=== PATIENT | female | born 1950 | race Caucasian/White ===

== ENCOUNTER 2023-04-04 12:30 | Inpatient (IN) | payer MEDICARE, BC ==
[~2023-04-04] VITALS: Ht 162.6 cm; Wt 59.9 kg
[2023-04-04] MEDS ORDERED: MAG HYDROX/AL HYDROX/SIMETH 30 ML UDC PO PRN (19:00)
[2023-04-04] MEDS ORDERED: BLOOD SUGAR DIAGNOSTIC 1 EACH STRIP IN ONE (19:00)
[2023-04-04] MEDS ORDERED: ACETAMINOPHEN 325 MG TABLET PO PRN (19:00)
[2023-04-04] MEDS ORDERED: MAGNESIUM HYDROXIDE 30 ML UDC PO PRN (19:00)
[2023-04-04] MEDS ORDERED: OLAN5TAB3 PO (19:16)
[2023-04-04] MEDS: clonazePAM 0.5 MG TABLET PO SCH (20:27)
[2023-04-04 20:31] VITALS: BP 153/71; TEMP 98; O2SAT 99
[2023-04-04] MEDS: TEMAZEPAM 7.5 MG CAPSULE PO PRN (22:00)
[2023-04-05 04:17] LABS: APPEARANCE,URINE CLEAR (CLEAR); BILIRUBIN,URINE NEGATIVE (NEGATIVE); BLOOD, URINE 2+ Ery/uL (NEGATIVE); COLOR,URINE DARK YELLOW (YELLOW); KETONES,URINE NEGATIVE (NEGATIVE); LEUKOCYTE ESTERASE ,URINE NEGATIVE (NEGATIVE); NITRITE, URINE NEGATIVE (NEGATIVE); PROTEIN,URINE NEGATIVE (NEGATIVE); UGLUCOSE NEGATIVE (NEGATIVE)
[2023-04-05 04:32] LABS: ADD URINE CULTURE NO; BACTERIA,URINE Rare /HPF (None Seen); SQUAMOUS EPITHELIAL CELL,UR Few /HPF (None Seen); WBC,URINE 0-2 /HPF (0-3)
[2023-04-05 07:46] LABS: CHOLESTEROL 151 mg/dL (<200); HDL CHOLESTEROL 56 mg/dL (40-60); LDL 76 mg/dL (0-99); TRIGLYCERIDES 54 mg/dL (30-150)
[2023-04-05 07:47] LABS: ALANINE AMINOTRANSFERASE 22 U/L (12-78); ALBUMIN 2.6 g/dL (3.4-5.0); ALKALINE PHOSPHATASE 72 U/L (46-116); ASPARTATE AMINOTRANSFERASE 18 U/L (15-37); CALCIUM, SERUM 9.4 mg/dL (8.5-10.1); CARBON DIOXIDE 26 mmol/L (21-32); CHLORIDE 105 mmol/L (98-107); CREATININE 0.9 mg/dL (0.6-1.3); GLUCOSE 104 mg/dL (74-106); POTASSIUM 3.8 mmol/L (3.5-5.1); SODIUM SERUM 140 mmol/L (136-145); TOTAL PROTEIN, SERUM 6.8 g/dL (6.4-8.2); UREA NITROGEN, BLOOD 16 mg/dL (7-18)
[2023-04-05 08:00] VITALS: BP 103/58; TEMP 98.1; O2SAT 98
[2023-04-05] MEDS: OLANZAPINE 2.5 MG TABLET PO SCH ×2 (10:52→16:39)
[2023-04-05] MEDS: DIVALPROEX SODIUM 125 MG TABLET.DR PO SCH ×2 (10:53→21:53)
[2023-04-05 16:00] VITALS: BP 127/81; TEMP 98; O2SAT 100
[2023-04-05] MEDS: clonazePAM 0.5 MG TABLET PO SCH (17:04)
[2023-04-05 21:05] VITALS: BP 110/69; TEMP 97.8; O2SAT 98
[2023-04-05] MEDS: TEMAZEPAM 7.5 MG CAPSULE PO PRN (22:06)
[2023-04-06 08:00] VITALS: BP 114/59; TEMP 97.8; O2SAT 100
[2023-04-06] MEDS: OLANZAPINE 2.5 MG TABLET PO SCH ×2 (09:50→16:12)
[2023-04-06] MEDS: DIVALPROEX SODIUM 125 MG TABLET.DR PO SCH ×2 (09:50→21:16)
[2023-04-06 16:00] VITALS: BP 110/71; TEMP 97.8; O2SAT 98
[2023-04-06 20:00] VITALS: BP 122/65; TEMP 97.8; O2SAT 99
[2023-04-06] MEDS: TEMAZEPAM 7.5 MG CAPSULE PO PRN (21:17)
[2023-04-06] MEDS: MUPIROCIN OINT 2% 22 GM TUBE NS SCH (21:18)
[2023-04-07 08:00] VITALS: BP 109/63; TEMP 98.6; O2SAT 100
[2023-04-07] MEDS: DIVALPROEX SODIUM 125 MG TABLET.DR PO SCH ×2 (08:12→21:00)
[2023-04-07] MEDS: OLANZAPINE 2.5 MG TABLET PO SCH ×2 (08:12→16:52)
[2023-04-07] MEDS: MUPIROCIN OINT 2% 22 GM TUBE NS SCH ×2 (08:14→21:00)
[2023-04-07 16:00] VITALS: BP 103/63; TEMP 97.4; O2SAT 100
[2023-04-07 21:29] VITALS: BP 104/63; TEMP 97.6; O2SAT 100
[2023-04-08 08:00] VITALS: BP 128/72; TEMP 98; O2SAT 95
[2023-04-08] MEDS: DIVALPROEX SODIUM 125 MG TABLET.DR PO SCH ×2 (08:22→21:11)
[2023-04-08] MEDS: MUPIROCIN OINT 2% 22 GM TUBE NS SCH ×2 (08:22→21:00)
[2023-04-08] MEDS: OLANZAPINE 2.5 MG TABLET PO SCH ×2 (08:22→16:20)
[2023-04-08 16:00] VITALS: BP 123/62; TEMP 98.6; O2SAT 98
[2023-04-08 20:00] VITALS: BP 135/74; TEMP 97.6
[2023-04-08] MEDS: clonazePAM 0.5 MG TABLET PO SCH (23:12)
[2023-04-09] MEDS: MUPIROCIN OINT 2% 22 GM TUBE NS SCH ×2 (09:10→21:10)
[2023-04-09] MEDS: DIVALPROEX SODIUM 125 MG TABLET.DR PO SCH ×2 (09:16→21:09)
[2023-04-09] MEDS: OLANZAPINE 2.5 MG TABLET PO SCH ×2 (09:16→17:19)
[2023-04-09 16:00] VITALS: BP 116/59; TEMP 97.9; O2SAT 100
[2023-04-10] MEDS: TEMAZEPAM 7.5 MG CAPSULE PO PRN (00:15)
[2023-04-10 08:00] VITALS: BP 113/70; TEMP 97.8; O2SAT 98
[2023-04-10] MEDS: MUPIROCIN OINT 2% 22 GM TUBE NS SCH ×2 (09:00→21:21)
[2023-04-10] MEDS: OLANZAPINE 2.5 MG TABLET PO SCH ×2 (10:06→17:11)
[2023-04-10] MEDS: DIVALPROEX SODIUM 125 MG TABLET.DR PO SCH ×3 (10:07→21:22)
[2023-04-10] MEDS: clonazePAM 0.5 MG TABLET PO SCH (13:50)
[2023-04-10 16:00] VITALS: BP 120/54; TEMP 97.9; O2SAT 100
[2023-04-10 20:24] VITALS: BP 125/79; TEMP 98.8; O2SAT 100
[2023-04-11 08:00] VITALS: BP 102/61; TEMP 97.8; O2SAT 98
[2023-04-11] MEDS: MUPIROCIN OINT 2% 22 GM TUBE NS SCH ×4 (09:00→21:07)
[2023-04-11] MEDS: ENSURE ENLIVE 237 ML LIQUID (VANILLA) PO SCH (09:00)
[2023-04-11] MEDS: DIVALPROEX SODIUM 125 MG TABLET.DR PO SCH ×2 (10:26→21:08)
[2023-04-11] MEDS: OLANZAPINE 2.5 MG TABLET PO SCH ×2 (10:27→17:37)
[2023-04-11 16:00] VITALS: BP 133/79; TEMP 97.6; O2SAT 98
[2023-04-11 20:18] VITALS: BP 119/66; TEMP 97.8; O2SAT 97
[2023-04-11] MEDS: TEMAZEPAM 7.5 MG CAPSULE PO PRN (21:10)
[2023-04-11] MEDS: clonazePAM 0.5 MG TABLET PO SCH (23:53)
[2023-04-12 08:00] VITALS: BP 117/56; TEMP 98.7; O2SAT 96
[2023-04-12] MEDS: OLANZAPINE 2.5 MG TABLET PO SCH ×2 (09:34→17:10)
[2023-04-12] MEDS: DIVALPROEX SODIUM 125 MG TABLET.DR PO SCH ×2 (09:35→21:29)
[2023-04-12] MEDS: clonazePAM 0.5 MG TABLET PO SCH ×2 (09:35→17:10)
[2023-04-12] MEDS: ENSURE ENLIVE 237 ML LIQUID (VANILLA) PO SCH (09:36)
[2023-04-12] MEDS: MUPIROCIN OINT 2% 22 GM TUBE NS SCH ×2 (09:37→21:25)
[2023-04-12 16:00] VITALS: BP 123/63; TEMP 98.1; O2SAT 98
[2023-04-12 20:22] VITALS: BP 117/79; TEMP 97.8; O2SAT 98
[2023-04-12] MEDS: TEMAZEPAM 7.5 MG CAPSULE PO PRN (21:37)
[2023-04-13 08:00] VITALS: BP 100/73; TEMP 97.9; O2SAT 97
[2023-04-13] MEDS: ENSURE ENLIVE 237 ML LIQUID (VANILLA) PO SCH (09:32)
[2023-04-13] MEDS: OLANZAPINE 2.5 MG TABLET PO SCH ×2 (09:32→16:24)
[2023-04-13] MEDS: MUPIROCIN OINT 2% 22 GM TUBE NS SCH (09:33)
[2023-04-13] MEDS: DIVALPROEX SODIUM 125 MG TABLET.DR PO SCH ×2 (09:33→21:09)
[2023-04-13 16:00] VITALS: BP 104/72; TEMP 97.5; O2SAT 99
[2023-04-13 21:06] VITALS: BP 130/70; TEMP 98.3; O2SAT 100
[2023-04-13] MEDS ORDERED: clonazePAM 0.5 MG TABLET PO PRN (23:08)
[2023-04-14 08:00] VITALS: BP 131/69; TEMP 98.1; O2SAT 95
[2023-04-14] MEDS: ENSURE ENLIVE 237 ML LIQUID (VANILLA) PO SCH (08:36)
[2023-04-14] MEDS: DIVALPROEX SODIUM 125 MG TABLET.DR PO SCH (08:37)
[2023-04-14] MEDS: OLANZAPINE 2.5 MG TABLET PO SCH (08:38)
== END 2023-04-14 13:30 | DRG 885 ==
LOC: GPS 18:22
PROVIDERS: ADMIT Nurse Practitioner Psychiatric/Mental Health
DX: F29 Unspecified psychosis not due to a substance or known physiological condition (principal); F03.93 Unspecified dementia, unspecified severity, with mood disturbance; F03.94 Unspecified dementia, unspecified severity, with anxiety; E44.0 Moderate protein-calorie malnutrition; F41.9 Anxiety disorder, unspecified; Z73.6 Limitation of activities due to disability; R53.1 Weakness; R27.8 Other lack of coordination; Z91.81 History of falling; Z78.9 Other specified health status; E88.09 Other disorders of plasma-protein metabolism, not elsewhere classified
CPT/HCPCS: 36415; 80053-TC; 80061-TC; 80164-TC; 81001; 82962-TC; 87081-TC; 97116-TC

== ENCOUNTER 2023-11-14 18:30 | Inpatient (IN) | payer MEDICARE, BC ==
[~2023-11-14] VITALS: Ht 165.1 cm; Wt 70.3 kg
[~2023-11-14 18:30] MED LIST: OLAN5TAB3 PO
[2023-11-14] MEDS: VANCOMYCIN 1 GM in IV D5W 250 ML IV ONE (19:00)
[2023-11-14 19:24] LABS: BASOPHILS % (AUTO) 0.4 % (0.0-2.0); EOSINOPHILS % (AUTO) 0.5 % (0.0-6.0); HEMATOCRIT 41 % (33-45); HEMOGLOBIN 13.5 g/dL (11.5-14.8); LYMPHOCYTES # (AUTO) 1.7 K/uL (0.8-4.8); LYMPHOCYTES % (AUTO) 33.1 % (20.0-44.0); MEAN CORPUSCULAR HEMOGLOBIN 32 PG (26.0-33.0); MEAN CORPUSCULAR HGB CONC 33 g/dl (31.0-36.0); MEAN CORPUSCULAR VOLUME 97 fL (82-100); MONOCYTES # (AUTO) 0.5 K/uL (0.1-1.30); MONOCYTES % (AUTO) 10.2 % (2.0-12.0); NEUTROPHILS # (AUTO) 2.9 K/uL (1.8-8.9); NEUTROPHILS % (AUTO) 55.8 % (43.0-81.0); PLATELET COUNT (AUTO) 181 K/uL (150-450); RED BLOOD CELL COUNT(AUTO) 4.22 MIL/uL (4.0-5.2); RED CELL DISTRIBUTION WIDTH 14.5 % (11.5-15.0); WHITE BLOOD COUNT (AUTO) 5.2 K/uL (4.3-11.0)
[2023-11-14] MEDS: PIPERACILLIN /TAZOBACTAM 3.375 G in IV D5W 50 ML IV ONE (19:24)
[2023-11-14] MEDS ORDERED: hydrALAZINE HCL IV 20 MG VIAL IV PRN (19:30)
[2023-11-14] MEDS ORDERED: ACETAMINOPHEN 325 MG TABLET PO PRN (19:30)
[2023-11-14] MEDS ORDERED: ONDANSETRON HCL/PF 4 MG/2 ML VIAL IVP PRN (19:30)
[2023-11-14] MEDS ORDERED: MORPHINE SULFATE INJ 2 MG/ML DISP.SYRIN IV PRN (19:30)
[2023-11-14 19:39] LABS: ALANINE AMINOTRANSFERASE 32 U/L (12-78); ALKALINE PHOSPHATASE 95 U/L (46-116); ASPARTATE AMINOTRANSFERASE 17 U/L (15-37); BILIRUBIN,DIRECT 0.1 mg/dL (0.0-0.2); BILIRUBIN,TOTAL 0.2 mg/dL (0.2-1.0); CALCIUM, SERUM 8.9 mg/dL (8.5-10.1); CARBON DIOXIDE 30 mmol/L (21-32); CHLORIDE 108 mmol/L (98-107); CREATININE 0.9 mg/dL (0.6-1.3); GLUCOSE 103 mg/dL (74-106); POTASSIUM 4.1 mmol/L (3.5-5.1); SODIUM SERUM 141 mmol/L (136-145); UREA NITROGEN, BLOOD 31 mg/dL (7-18)
[2023-11-14] MEDS: HEPARIN SODIUM, PORCINE 5000 UNITS/1 ML VIAL SQ SCH (23:00)
[2023-11-15] MEDS ORDERED: CLINDAMYCIN 900 MG/6 ML VIAL ONE (05:35)
[2023-11-15] MEDS: CLINDAMYCIN 900 MG in IV D5W 50 ML IV SCH (05:56)
[2023-11-15 07:22] LABS: BASOPHILS % (AUTO) 0.9 % (0.0-2.0); EOSINOPHILS # (AUTO) 0.1 K/uL (0.0-0.7); EOSINOPHILS % (AUTO) 2.4 % (0.0-6.0); HEMATOCRIT 42 % (33-45); HEMOGLOBIN 13.8 g/dL (11.5-14.8); LYMPHOCYTES # (AUTO) 1.6 K/uL (0.8-4.8); LYMPHOCYTES % (AUTO) 44.5 % (20.0-44.0); MEAN CORPUSCULAR HEMOGLOBIN 33 PG (26.0-33.0); MEAN CORPUSCULAR HGB CONC 33 g/dl (31.0-36.0); MEAN CORPUSCULAR VOLUME 98 fL (82-100); MONOCYTES # (AUTO) 0.4 K/uL (0.1-1.30); NEUTROPHILS # (AUTO) 1.5 K/uL (1.8-8.9); NEUTROPHILS % (AUTO) 41.2 % (43.0-81.0); PLATELET COUNT (AUTO) 171 K/uL (150-450); RED BLOOD CELL COUNT(AUTO) 4.25 MIL/uL (4.0-5.2); RED CELL DISTRIBUTION WIDTH 14.7 % (11.5-15.0); WHITE BLOOD COUNT (AUTO) 3.6 K/uL (4.3-11.0)
[2023-11-15 07:43] LABS: ALBUMIN 2.8 g/dL (3.4-5.0); BILIRUBIN,TOTAL 0.2 mg/dL (0.2-1.0); CREATININE 0.8 mg/dL (0.6-1.3); MAGNESIUM 1.8 mg/dL (1.8-2.4); PHOSPHORUS 3.3 mg/dL (2.5-4.9); TOTAL PROTEIN, SERUM 6.2 g/dL (6.4-8.2)
[2023-11-15 08:00] VITALS: BP 135/76; TEMP 97.3; O2SAT 97
[2023-11-15] MEDS ORDERED: CLINDAMYCIN PHOSPHATE IV 600 MG/4 ML VIAL IV SCH (09:00)
[2023-11-15] MEDS ORDERED: MAGN400O6 PO (09:21)
[2023-11-15] MEDS ORDERED: CLON0.5T4 PO (09:21)
[2023-11-15] MEDS ORDERED: GUAI237L83 PO (09:21)
[2023-11-15] MEDS ORDERED: CHOL100062 PO (09:21)
[2023-11-15] MEDS ORDERED: ACET325T53 PO (09:21)
[2023-11-15] MEDS ORDERED: DIVA500T4 PO (09:21)
[2023-11-15] MEDS ORDERED: OLAN2.5T3 PO (09:21)
[2023-11-15] MEDS ORDERED: MAG30ORA PO (09:21)
[2023-11-15] MEDS: QUETIAPINE FUMARATE 25 MG TABLET PO ONE (11:30)
[2023-11-15] MEDS: DIVALPROEX SODIUM 500 MG TABLET.DR PO SCH (14:18)
[2023-11-15] MEDS: OLANZAPINE 2.5 MG TABLET PO SCH (14:19)
[2023-11-15] MEDS: LORAZEPAM INJ 2 MG/ML VIAL IV ONE (14:23)
[2023-11-15 14:30] VITALS: BP 147/89
[2023-11-15 16:00] VITALS: BP 106/86; TEMP 97.5; O2SAT 96
[2023-11-15 20:21] LABS: APPEARANCE,URINE CLEAR (CLEAR); BILIRUBIN,URINE NEGATIVE (NEGATIVE); BLOOD, URINE NEGATIVE Ery/uL (NEGATIVE); COLOR,URINE YELLOW (YELLOW); KETONES,URINE NEGATIVE (NEGATIVE); LEUKOCYTE ESTERASE ,URINE NEGATIVE (NEGATIVE); NITRITE, URINE NEGATIVE (NEGATIVE); PH,URINE 6.5 (5.0-8.0); PROTEIN,URINE NEGATIVE (NEGATIVE); UGLUCOSE NEGATIVE (NEGATIVE); UROBILINOGEN,URINE 0.2 EU/dL (0.2)
[2023-11-15] MEDS: OLANZAPINE 5 MG TABLET PO SCH (21:29)
[2023-11-16 08:00] VITALS: BP 127/59; TEMP 97.5; O2SAT 96
[2023-11-16 08:12] LABS: BASOPHILS % (AUTO) 0.7 % (0.0-2.0); EOSINOPHILS # (AUTO) 0.1 K/uL (0.0-0.7); EOSINOPHILS % (AUTO) 1.3 % (0.0-6.0); HEMATOCRIT 43 % (33-45); HEMOGLOBIN 14.3 g/dL (11.5-14.8); LYMPHOCYTES # (AUTO) 1.3 K/uL (0.8-4.8); LYMPHOCYTES % (AUTO) 32.4 % (20.0-44.0); MEAN CORPUSCULAR HEMOGLOBIN 33 PG (26.0-33.0); MEAN CORPUSCULAR HGB CONC 33 g/dl (31.0-36.0); MEAN CORPUSCULAR VOLUME 98 fL (82-100); MONOCYTES # (AUTO) 0.4 K/uL (0.1-1.30); MONOCYTES % (AUTO) 10.3 % (2.0-12.0); NEUTROPHILS # (AUTO) 2.3 K/uL (1.8-8.9); NEUTROPHILS % (AUTO) 55.3 % (43.0-81.0); PLATELET COUNT (AUTO) 196 K/uL (150-450); RED BLOOD CELL COUNT(AUTO) 4.37 MIL/uL (4.0-5.2); WHITE BLOOD COUNT (AUTO) 4.1 K/uL (4.3-11.0)
[2023-11-16 08:57] LABS: CALCIUM, SERUM 9.1 mg/dL (8.5-10.1); CREATININE 0.8 mg/dL (0.6-1.3); PHOSPHORUS 3.7 mg/dL (2.5-4.9); POTASSIUM 4.2 mmol/L (3.5-5.1)
[2023-11-16] MEDS: CHOLECALCIFEROL 1,000 UNIT TABLET (VIT D3) PO SCH (09:15)
[2023-11-16] MEDS ORDERED: CLIN300C12 PO (11:06)
[2023-11-16 16:00] VITALS: BP 109/49; TEMP 98.5; O2SAT 98
[2023-11-16 20:00] VITALS: BP 112/54; TEMP 98.6; O2SAT 99
[2023-11-16 22:36] VITALS: BP 112/54; TEMP 98.6; O2SAT 99
[2023-11-16] MEDS: clonazePAM 0.5 MG TABLET PO PRN (23:29)
[2023-11-17 08:00] VITALS: BP 143/125; TEMP 97.5; O2SAT 97
== END 2023-11-17 10:30 | DRG 602 ==
LOC: ER 18:36 → MED 20:21
PROVIDERS: ADMIT Internal Medicine; ATTEND Nurse Practitioner Acute Care
PROC: 0HBRXZZ Excision of Toe Nail, External Approach (ICD-10-PCS; principal; 2023-11-16)
DX: L03.115 Cellulitis of right lower limb (principal); I50.31 Acute diastolic (congestive) heart failure; E44.0 Moderate protein-calorie malnutrition; F03.93 Unspecified dementia, unspecified severity, with mood disturbance; F03.94 Unspecified dementia, unspecified severity, with anxiety; L03.116 Cellulitis of left lower limb; E88.09 Other disorders of plasma-protein metabolism, not elsewhere classified; F32.A Depression, unspecified; L60.3 Nail dystrophy; Z73.6 Limitation of activities due to disability; Z68.25 Body mass index [BMI] 25.0-25.9, adult; S81.811A Laceration without foreign body, right lower leg, initial encounter; X58.XXXA Exposure to other specified factors, initial encounter; Y93.9 Activity, unspecified; Y92.129 Unspecified place in nursing home as the place of occurrence of the external cause
CPT/HCPCS: 36415; 73590-TC; 80048-TC; 80053-TC; 80076-TC; 83605-TC; 83735-TC; 83880; 84100-TC; 85025-TC; 85652-TC; 86140-TC; 93307-TC; 93970-TC; A4223; A6253; G0378; J1644; J2060; J2543; J3370; J3490; J7040; J7060